=== PATIENT | female | born 1935 | race Caucasian/White ===

== ENCOUNTER → 2018-03-25 | Outpatient (CLI) | payer OTHER ==
[~2018-03-25] MED LIST: AMOXICILLIN875 MG PO; B-COMPLEX-VITA1 EACH PO; CYMBALTA60 MG PO; DESYREL50 MG PO; GLUCOSAMINE &1 EAC1 PO; LODINE; MOBIC15 MG PO; MULTIVITAMINS1 EAC7 PO; ULTRAM 50MG TAB50 MG PO; VITAMIN C + RO500 MG PO; VITAMIN D-32000 UNIT PO; ZESTORETIC 10-1 EAC1 PO; ZOCOR 20 MG TAB20 M1 PO; [UNRECOGNIZED DRUG - CODE]; [UNRECOGNIZED DRUG - OTHER] PO
== END ==
LOC: M.RAD 14:29
DX: Z12.31 Encounter for screening mammogram for malignant neoplasm of breast (principal)

== ENCOUNTER → 2019-04-30 | Outpatient (CLI) | payer OTHER | LOC: M.RAD 08:59 | DX: Z12.31 Encounter for screening mammogram for malignant neoplasm of breast (principal) ==

== ENCOUNTER → 2020-05-01 | Outpatient (CLI) | payer MEDICARE | LOC: M.RAD 10:21 | PROVIDERS: ATTEND Internal Medicine | DX: Z12.31 Encounter for screening mammogram for malignant neoplasm of breast (principal) ==